=== PATIENT | female | born 1975 | race Caucasian/White ===

== ENCOUNTER 2025-01-06 00:16 | Emergency (ER) | payer OTHER ==
[~2025-01-06] VITALS: Ht 167.6 cm; Wt 90.7 kg
[2025-01-06 03:48] LABS: BASOPHILS ABSOLUTE AUTO 0.08 K/mm3 (0.00-0.23); BASOPHILS PERCENT AUTO 1 % (0-2); EOSINOPHILS ABSOLUTE AUTO 0.41 K/mm3 (0.00-0.68); EOSINOPHILS PERCENT AUTO 4 % (0-6); Hematocrit 39.4 % (33.0-51.0); Hemoglobin 12.8 g/dL (11.5-16.0); IMMATURE GRAN ABSOLUTE AUTO 0.03 K/mm3 (0.00-0.10); IMMATURE GRAN PERCENT AUTO 0 % (0-1); LYMPHOCYTES ABSOLUTE AUTO 2.89 K/mm3 (0.84-5.20); LYMPHOCYTES PERCENT AUTO 26 % (21-46); MONOCYTES ABSOLUTE AUTO 1.29 K/mm3 (0.16-1.47); MONOCYTES PERCENT AUTO 12 % (4-13); Mean Corpuscular HGB Conc 32.5 g/dL (31.5-36.5); Mean Corpuscular Volume 89 fL (80-100); Mean Platelet Volume 9.8 fL (9.1-12.4); NEUTROPHILS ABSOLUTE AUTO 6.34 K/mm3 (1.96-9.15); NEUTROPHILS PERCENT AUTO 57 % (41-73); Platelet Count 282 K/mm3 (150-400); RDW Coefficient Variation 12.9 % (11.7-14.2); RDW Standard Deviation 42.3 fL (35.1-46.3); Red Blood Cell Count 4.41 M/mm3 (3.80-5.20); White Blood Cell Count 11.04 K/mm3 (4.00-11.30)
[2025-01-06] MEDS ORDERED: CefTRIAXone Sodium 1,000 MG in NS 50 ML IV ONE (04:00)
[2025-01-06] MEDS ORDERED: Trimethoprim/Sulfamethoxazole DS Tab PO ONE (04:00)
[2025-01-06] MEDS ORDERED: Ketorolac Tromethamine 30mg Vial IV ONE (04:05)
[2025-01-06] MEDS ORDERED: Diphth,Pertuss(Acell),Tet Vac 0.5 ML VIAL IM ONE (04:05)
[2025-01-06 04:12] LABS: Albumin, Blood 3.2 g/dL (3.4-5.0); Albumin/Globulin Ratio 0.8 (0.8-1.8); Bilirubin, Total 0.3 mg/dL (0.1-1.0); Bun/Creatinine Ratio 14.7 (12.0-20.0); Calcium, Blood 8.3 mg/dL (8.5-10.1); Creatinine, Blood 0.68 mg/dL (0.40-1.00); Globulin, Blood 3.8 g/dL (2.2-4.0); Potassium, Blood 3.2 mmol/L (3.5-5.5)
[2025-01-06] MEDS ORDERED: Ondansetron HCl 2 MG / ML 2ML Vial IV ONE (04:45)
[2025-01-06] MEDS ORDERED: CEPH500 PO (05:10)
[2025-01-06] MEDS ORDERED: SULTRIDS PO (05:10)
[2025-01-06] MEDS ORDERED: Potassium Chl 20MEQ/Water100ML 100 ML IV SCH (05:10)
[2025-01-06] MEDS ORDERED: NS 1,000 ML IV SCH (05:10)
[2025-01-06] MEDS ORDERED: Potassium Chloride 20 MEQ TabCR PO ONE (07:15)
[2025-01-06] MEDS ORDERED: ONDA4ODT MM (07:40)
== END 2025-01-06 07:50 | disposition home or self-care (01) ==
LOC: ER 00:16
PROVIDERS: Student in an Organized Health Care Education/Training Program
DX: L03.032 Cellulitis of left toe (principal); L03.116 Cellulitis of left lower limb; Z59.00 Homelessness unspecified; Z86.14 Personal history of Methicillin resistant Staphylococcus aureus infection; Z59.89 Other problems related to housing and economic circumstances
CPT/HCPCS: 80053; 83605; 85025; 87040; 90471; 93005; 93010; 93971; 96365; 96375; 99284-25; A9270; J0696; J1885; J3480; J7030